=== PATIENT | female | born 1955 | race Caucasian/White ===

== ENCOUNTER → 2017-02-17 | Outpatient (CLI) | payer MEDICAID ==
[~2017-02-17] MED LIST: ACET-732 PO; CALC-586 PO; DULO30CA52 PO; FERR1TAB25 PO; LEVO25TA9 PO; MULT-806 PO; PRAM0.122 PO
[2017-02-17 11:05] LABS: ABSOLUTE RETICS # 0.0422 T/MM3 (0.0300-0.0900); HCT - HEMATOCRIT 37.7 % (36-46); MEAN CORPUSCULAR HGB 26.8 UUG (26-34); MEAN CORPUSCULAR HGB CONC(MCHC 29.2 GM/DL (31-37); MEAN PLATELET VOLUME 9.1 UM3 (9.4-12.4); WBC - WHITE BLOOD COUNT 5.9 T/MM3 (4.5-11.0)
[2017-02-17 11:14] LABS: ALBUMIN/GLOBULIN RATIO 1.1 RATIO (1.1-2.2); ALKALINE PHOSPHATASE 106 U/L (38-126); ALT (SGPT) 19 U/L (9-52); ANION GAP 14 MEQ/L (5-15); AST (SGOT) 23 U/L (14-36); BUN/CREATININE RATIO 14 RATIO (6-26); CHLORIDE 106 MEQ/L (98-107); CO2 - CARBON DIOXIDE 28 MEQ/L (22-30); CREATININE 1.7 MG/DL (0.7-1.2); GLOMERULAR FILTRATION RATE 31; GLUCOSE 121 MG/DL (65-110); LDH 458 U/L (313-618); MAGNESIUM 1.9 MG/DL (1.6-2.3); POTASSIUM 4.2 MEQ/L (3.6-5); SODIUM 148 MEQ/L (134-144); TOTAL PROTEIN 7.7 G/DL (6.3-8.2)
[2017-02-17 11:29] LABS: ANISOCYTOSIS 1+; BAND NEUTROPHILS # 0.1 T/MM3; EOSINOPHILS # (MANUAL) 0.1 T/MM3 (0-0.5); LYMPHOCYTES # (MANUAL) 0.9 T/MM3 (1-4.8); MONOCYTES # (MANUAL) 0.1 T/MM3 (0-0.8); NEUTROPHILS #(MANUAL)-ABSOLUTE 4.7 T/MM3 (1.8-7.7); POIKILOCYTOSIS 1+; TOTAL CELLS COUNTED 100 %
== END ==
LOC: LAB 10:46
PROVIDERS: ATTEND Internal Medicine Hematology & Oncology
DX: N18.3 Chronic kidney disease, stage 3 (moderate) (principal); D63.8 Anemia in other chronic diseases classified elsewhere
CPT/HCPCS: 36415; 80053; 83615; 83735; 85025; 85045

== ENCOUNTER → 2017-03-20 | Outpatient (CLI) | payer MEDICAID ==
--- NOTE | 2017-03-20 12:55 | DI ---
INDICATION: ITS.REASON: R05 COUGH PROCEDURE: CHEST 2-VIEWS UPRIGHT (PA \T\ LAT) Encounter: Initial COMPARISON: August 07, 2016 FINDINGS: New airspace consolidation in the left lower lobe with a small left effusion. Right lung is clear. No pneumothorax. Heart size and mediastinal contours are within normal limits. Pulmonary vascularity appears normal. Surgical clips in the upper abdomen. Impression: Left lower lobe pneumonia with small parapneumonic effusion. .
== END ==
LOC: IMA 10:48
PROVIDERS: ATTEND Nurse Practitioner Family
DX: J18.9 Pneumonia, unspecified organism (principal); J91.8 Pleural effusion in other conditions classified elsewhere; R05 Cough

== ENCOUNTER 2017-03-27 10:14 | Inpatient (IN) ==
--- NOTE | 2017-03-27 11:31 | XRay Report ---
INDICATION: PLURAL EFFUSION PROCEDURE: CHEST 2-VIEWS UPRIGHT (PA & LAT) Encounter: Initial COMPARISON: March 20, 2017 FINDINGS: Persistent left lower lobe airspace consolidation with a small effusion. Pleural effusion is slightly smaller. Right lung is clear. No pneumothorax. Heart size and mediastinal contours are stable. Pulmonary vascularity is normal. Impression: Slight improvement in left pleural effusion with residual left lower lobe airspace disease. Recommend continued radiographic follow-up. .
[2017-03-27] MEDS ORDERED: NS 1,000 ML IV SCH (11:45)
--- NOTE | 2017-03-27 12:12 | Ultrasound Report ---
Indication: Lower extremity swelling PROCEDURE: US venous doppler LE BI: Encounter: Initial Comparison: September 16, 2016 Technique: Color Doppler duplex and grayscale sonographic imaging of both lower extremities was performed. Findings: There is no evidence for acute deep venous thrombosis in either thigh. Specifically, serial graded compression was performed from the inguinal ligament to the popliteal bifurcation, bilaterally, demonstrating appropriate compressibility of the deep venous system. In addition, color and pulsed Doppler demonstrate appropriate spontaneous flow, variation with respiration, and augmentation with calf compression. At the ankle, normal flow is identified in the posterior tibial veins; these vessels are also normal in caliber. Impression: No evidence of acute DVT in either lower limb. .
[2017-03-27] MEDS: CLINDAMYCIN PREMIX 600 MG/50 ML BAG IV SCH ×2 (12:23→20:29)
[2017-03-27] MEDS ORDERED: ACETAMINOPHEN 325 MG TABLET PO PRN (12:56)
[2017-03-27] MEDS: IPRATROPIUM/ALBUTEROL 2.5mg-0.5mg/3ml NEB AEROSOL SCH ×2 (13:09→19:15)
--- NOTE | 2017-03-27 13:13 | Pharmacy Consult- Renal Dosing ---
Pharamcy Consul-Renal Dosing - Laboratory Information Renal dosing: Levofloxacin 03/27/17 11:56 BUN 27.0 H Creatinine 1.5 H Calculated CrCl = 47 ml/min. We will begin levofloxacin with 750mg ivpb q24h and clindamycin 600mg ivpb q8h. We anticipate improvement in creatinine clearance by 03/28. We will adjust levofloxacin if renal function does not improve by 03/28/17. Thanks
[2017-03-27] MEDS: METHYLPREDNISOLONE SOD SUCC 40mg/ml INJECTION IVP SCH ×2 (13:19→17:36)
[2017-03-27] MEDS: LEVOFLOXACIN PREMIX 750 MG/150 ML BAG IV SCH (13:51)
--- NOTE | 2017-03-27 14:07 | General Surgery Consult Note ---
Consult date: 03/27/17 Attending Physician: Jerardo Ashby DO Reason for consult: other (pleural effusion) [facility] Patient Stated Medical History Dental Problems Yes: dentures uppers and lowers Hypertension Yes: previously on HTN meds Asthma Yes Bronchitis Yes Pneumonia Yes Diabetes Mellitus Type 2 Yes: diet controlled Anemia Yes: Dr. Quiroz Chronic Anemia Osteoarthritis Yes Cellulitis Yes: right foot december 2016 Blood Transfusions Yes: when kidneys went into failure Restless leg syndrome Surgical History: Lap Sandhya 09/07/2314. right total hip 01/30/2014. left total hip 04/27/2015. EGD 12/31/2015 - Antritis, duodenal polyp. Colonoscopy 12/31/2015 - Larege Tubulovillous adenoma with low grade dysplasia. Colonoscopy 07/17/2016 - hyperplastic polyp Family History: mother - colon cancer, stroke, HTN brother - HTN Smoking status: Former smoker Medications Home Medications Medication Instructions Recorded Confirmed Type Duloxetine HCl 1 cap PO DAILY #30 12/28/15 History Levothyroxine Sodium 4 tab PO DAILY #30 12/28/15 03/27/17 History Pramipexole Di-HCl [Mirapex] 5 tab PO DAILY #0 07/03/16 03/27/17 History APAP/Codeine 300/30 (#3) [Tylenol 1 tab PO TID PRN 03/27/17 03/27/17 History with Codeine #3 (300/30)] Folic Acid [Folate] 1 mg PO TID 03/27/17 03/27/17 History Hydroxychloroquine Sulfate 400 mg PO DAILY 03/27/17 03/27/17 History METHOTREXATE 2.5mg TAB 15 mg PO WEEKLY 03/27/17 03/27/17 History [Methotrexate] Allergies Allergy/AdvReac Type Severity Reaction Status Date / Time Penicillins AdvReac Unknown FAMILY Verified 11/25/12 19:00 ALLERGY Review of Systems 10-point ROS: negative except for HPI and the following: - General General: Present: fever - Cardiovascular Cardiovascular: Present: chest pain (angina) (with deep breath) - Respiratory Respiratory: Present: difficulty breathing, cough - Gastrointestinal Gastrointestinal: Present: diarrhea - Musculoskeletal Musculoskeletal: Present: joint pain - Neurological Neurological: Present: other (headache) - Endocrine Endocrine: Present: diabetes (diet controlled) - Vital Signs Vital Signs: Last Vital Signs Temp 98.6 F 03/27/17 10:24 Pulse 98 03/27/17 12:08 Resp 16 03/27/17 13:00 BP 126/74 03/27/17 12:08 Pulse Ox 96 03/27/17 13:00 General Surgery Results - Results Labs: 03/27/17 11:56 03/27/17 11:56 Microbiology: Microbiology 03/27/17 11:56 Peripheral/Iv Start Blood Culture - Preliminary Culture Initiated - Results Pending 03/27/17 12:02 Peripheral/Iv Start Blood Culture - Preliminary Culture Initiated - Results Pending Hospital Course Summary Disclaimer: The visit summary below is not to be considered part of the above Progress Note. Sepsis Assessment - Focused Exam Vital Signs Temp Pulse Resp BP Pulse Ox 03/27/17 13:00 16 96 03/27/17 12:08 98 126/74 94 03/27/17 12:07 106 H 125/75 94 03/27/17 12:06 93 136/73 03/27/17 10:24 98.6 F 94 18 136/73 95
--- NOTE | 2017-03-27 14:24 | History & Physical Report ---
History of Present Illness Date: Chief complaint: community acquired pneumonia and pleural effusion and failed outpatient HPI: patient is a pleasant 61yo female known to our clinic. she has a known history of chronic kidney disease, hypertension and is a former smoker. she was in her usual state of health until about one week ago. at that time she started in with fevers, chills and cough as well as some SOA which was mostly on exertion. she [facility] and put on azithromycin and albuterol. a subsequent CXR showed a LLL pneumonia/small pleural effusion versus parapneumonic effusion. when seen in follow up early in the week it was noted she had improved quite a bit and, in speaking with radiology, the effusion wasn't significant enough to tap at that time. a CT of the chest without contrast was obtained that supported this and was otherwise unremarkable. she was put on levaquin renally dosed, tessalon perles and initially did very well with this. there was no intraperynchamal findings on the CT, just the pleural effusion. over the last 2 days the patient started feeling worse again and spiked a fever up to about 101 per her report at home. she started feeling very weak again. all the same symptoms had returned. she had a follow up scheduled for today and she was too weak to even walk up the stairs to get to her appointment and had to be seen in a room downstairs on the first floor of our building (this was a big change from earlier in the week). vitals were stable. given the clinical worsening it was opted to admit the patient to [facility] for further workup and evaluation. ROS is positive for the fevers, body aches and chills noted above. she denies headaches, photophobia, focal neurologic deficits, ear pain, sinus pain, sore throat. she is a little lightheaded when she stands up briskly but this goes away after a couple of seconds and she's find. no vertigo. no night sweats, unintentional weight loss. appetite has been poor. no other constitutional symptoms. no chest pain. doesn't seem to really be SOA at rest or exertion beyond where she was before. no orthopnea, PND. sputum is yellow. no hemoptysis. she feels like her legs were a bit swollen the other day and her calfs hurt but no such issues today. ROS negative for new DVT or PE risk factors. no numbness/weakness/tingling in arms or legs. no gait changes. no falls, trauma or injuries. no syncope or near-syncope. no recent travel, rashes, sick exposures, camping, [place]is exposures. no abdominal pain, nausea, vomiting, constipation, bloody/black stools. she had X3 episodes of watery brown diarrhea/loose stools yesterday but none so far today. no dysuria, hematuria, urinary frequency, flank pain, nocturia, bowel/bladder incontinance. no skin/soft tissue changes or problems. no mood changes and she denies homicidal/suicidal ideations. see above and below for further ROS. Review of Systems - Constitutional Constitutional: Present: as per HPI, chills, fatigue, fever(s), weakness. Absent: headache(s), increased appetite, night sweats, weight gain, weight loss - EENMT Eyes: Present: as per HPI. Absent: loss of vision EENMT Comments: no vision changes or URI symptoms. see above HPI. - Cardiovascular Cardiovascular: Present: dyspnea on exertion (but no more than previous.), edema (but none now. see HPI above. ). Absent: chest pain, palpitations, syncope, orthopnea, cyanosis Vascular: Present: see HPI. Absent: unilateral swelling (none right now. see above HPI.) - Respiratory Respiratory: Present: as per HPI, cough, dyspnea (but no more than previous. see above HPI.), wheezing, chest congestion. Absent: hemoptysis, pain on inspiration - Gastrointestinal Gastrointestinal: Present: as per HPI, diarrhea (see above HPI.). Absent: abdominal pain, coffee ground emesis, constipation, dyspepsia, dysphagia, hematemesis, hematochezia, melena, nausea, odynophagia, vomiting - Genitourinary Genitourinary: Present: as per HPI. 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 - Musculoskeletal Musculoskeletal: Present: as per HPI. Absent: abnormal gait, back pain, limited range of motion, muscle weakness, neck pain - Integumentary/Breasts Integumentary: Present: as per HPI Integumentary Comments: no skin or soft tissues changes. no new rashes. - Neurological Neurological: Present: as per HPI Neurological Comments: ROS negative for vertigo, stroke, tinnitus, hearing changes, meningeal symptoms , photophobia, seizure symptoms, focal neurologic deficits, cranial nerve symptoms. - Psychiatric Psychiatric: Present: as per HPI. Absent: auditory hallucinations, depression, hallucinations, homicidal ideation, suicidal ideation, visual hallucinations - Endocrine Endocrine: Present: as per HPI - Hematologic/Lymphatic Hematologic/Lymphatic: Present: as per HPI Hematologic/Lymphatic Comments: no abnormal bleeding. - Allergic/Immunologic Allergic/Immunologic: Present: as per HPI Allergic/Immunologic: see the above for allergies and ADR's. [facility] Patient Stated Medical History Dental Problems Yes: dentures uppers and lowers Hypertension Yes: previously on HTN meds Asthma Yes Bronchitis Yes Pneumonia Yes Diabetes Mellitus Type 2 Yes: diet controlled Anemia Yes: Dr. Quiroz Chronic Anemia Osteoarthritis Yes Cellulitis Yes: right foot december 2016 Blood Transfusions Yes: when kidneys went into failure Medical History Updates: -iron deficiency anemia. -elevated fasting blood sugar. -osteoarthritis. -chronic kidney disease with baseline creatinine of 1.6. -HTN. -Sjogren's syndrome, followed by rheumatology. -GERD remotely Surgical History: Lap Sandhya 09/07/2314. right total hip 01/30/2014. left total hip 04/27/2015. EGD 12/31/2015 - Antritis, duodenal polyp. Colonoscopy 12/31/2015 - Larege Tubulovillous adenoma with low grade. dysplasia. Colonoscopy 2015 - hyperplastic polyp Family History: -father has . had heart disease -mother alive, has colon cancer, hypertension, history of stroke. Smoking status: Former smoker Social history: -former smoker -no illicit drug use -no significant alcohol use -lives at home Medications Home Medications Medication Instructions Recorded Confirmed Type Duloxetine HCl 1 cap PO DAILY #30 12/28/15 History Levothyroxine Sodium 4 tab PO DAILY #30 12/28/15 03/27/17 History Pramipexole Di-HCl [Mirapex] 5 tab PO DAILY #0 07/03/16 03/27/17 History APAP/Codeine 300/30 (#3) [Tylenol 1 tab PO TID PRN 03/27/17 03/27/17 History with Codeine #3 (300/30)] Folic Acid [Folate] 1 mg PO TID 03/27/17 03/27/17 History Hydroxychloroquine Sulfate 400 mg PO DAILY 03/27/17 03/27/17 History METHOTREXATE 2.5mg TAB 15 mg PO WEEKLY 03/27/17 03/27/17 History [Methotrexate] Allergies Allergy/AdvReac Type Severity Reaction Status Date / Time Penicillins AdvReac Unknown FAMILY Verified 11/25/12 19:00 ALLERGY Exam Vital Signs: Temp Pulse Resp BP Pulse Ox 98.6 F 98 16 126/74 96 03/27/17 10:24 03/27/17 12:08 03/27/17 13:00 03/27/17 12:08 03/27/17 13:00 Height: 1.63 m Weight: 103.3 kg Body Mass Index: 39.0 - Constitutional Present: no acute distress, obese, cooperative. Absent: diaphoretic, disheveled , agitated, somnolent, obtunded - Routine HEENT Exam Head: Present: normocephalic, atraumatic Comments: mucous membranes moderately dry. - Routine Neck Exam Present: supple, full ROM, trachea midline. Absent: JVD, lymphadenopathy, thyromegaly, tenderness, tracheal deviation, trauma Comments: no photophobia. no clinical evidence of meningitis at this time. - Routine Chest/Breast/Axilla Exam Chest wall: Absent: tenderness - Routine Respiratory Exam Present: CTA bilaterally. Absent: accessory muscle use, decreased breath sounds , rales, respiratory distress, rhonchi, stridor, wheezes, crackles, distant breath sounds, diminished air movement Comments: lung sounds heard in all lung ghotra b/l at this time. moving air well. no respiratory distress, retractions, accessory muscle use. - Routine Cardiovascular Exam Present: RRR, no murmur. Absent: murmur, gallop, rubs, click, bradycardia, tachycardia, irregular rhythm, irregularly irregular, JVD Comments: clinically well perfused in all 4 extremities at this time. no stigmata of heart failure. legs symmetrical and this time and no LE edema bilaterally. no clinical evidence of acute, chronic or worsening neurovascular compromise b/l in LE's at this time. compartments soft b/l in LE's at this time. pulses normal in LE's b/l at this time. see below for neurologic exam. - Routine Abdominal Exam Present: soft (X4.), normoactive bowel sounds (X4.), non distended, non tender ( X4.\). Absent: tenderness (X4.), distended, rebound, guarding, firm, rigid, organomegaly, mass - Routine Exam Comments: no tenderness over bladder area. - Routine Extremities Exam Comments: see above. extremities clinically well perfused X4 extremities. - Routine Back/Spine/Pelvis Exam Comments: CN2-12 in tact to testing. PERRLA. EOMI. no nystagmus. gait normal. concensual reflex in tact. DTR's/sensation/motor/muscle strength normal and symmetrical b/l in extremities X4 at this time. no focal deficits at this time. no photophobia. no clinical evidence of meningitis at this time. - Routine Skin Exam Present: intact. Absent: rash Comments: or skin changes to uncovered areas at this time. - Routine Psychiatric Exam Present: normal affect, normal thought process, cooperative, good insight, good judgment. Absent: suicidal ideation, homicidal ideation, auditory hallucinations, visual hallucinations, tactile hallucinations, depressed, anxious, agitated, paranoid, manic Results - Labs CBC & Chem 7: 03/27/17 11:56 03/27/17 11:56 Labs: Short CBC 03/27/17 Range/Units 11:56 WBC 8.6 (4.5-11.0) T/MM3 Hgb 10.5 L (12-16) GM/DL Hct 35.2 L (36-46) % Plt Count 304 (130-400) T/MM3 [facility] 03/27/17 11:56 Sodium 146 H Potassium 4.3 Chloride 105 Carbon Dioxide 25 BUN 27.0 H Creatinine 1.5 H Glucose 107 Calcium 9.4 Cardiac Enzymes 03/27/17 Range/Units 11:56 Troponin I 0.012 (0-0.12) ng/ml Liver Function 03/27/17 Range/Units 11:56 Total Bilirubin 0.50 (0.20-1.30) MG/DL AST 24 (14-36) U/L ALT 34 (9-52) U/L Alkaline Phosphatase 93 (38-126) U/L Albumin 4.2 (3.5-5.0) G/DL Assessment and Plan Assessment and Plan: community acquired pneumonia with pleural effusion. failed outpatient therapy. concern for empyema, parapneumonic effusion versus other cause. weakness secondary to the above. lower extremity venous edema and calf pain a few days ago, resolved. diarrhea of uncertain etiology dehydration hypertension chronic kidney disease depression Sjogren's syndrome, well controlled chronic iron deficiency anemia elevated fasting blood sugar hypothyroid -admit to inpatient, routine vitals with call parameters, I's and O's, telemetry, daily weights, diabetic diet, up with assist, oxygen as needed, orthostatic vitals. other possible causes of pleural confusion are pleuritis, methotrexate, autoimmune issues. 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 -IV normal saline 1 liter wide open then 125ml/hr for now. start IV solumedrol, IV levaquin and clindamycin with pharmacy to dose, tesamrit cox scheduled, duonebs scheduled. continue home multivitamin, vitmain C, iron , cymbalta, mirapex, methotrexate, folic acid, plaquanil, calcium/vitamin D, tylenol prn, synthroid. -check cbc, cmp, troponin, procalcitonin, lactic acid, tsh, blood cultures X2, UA, crp, sputum culture and gram stain, urine strep pneumonia, urine legionella, mycoplasma serologies, CK, coag studies, stool PCR and c-diff, TSH now. check GLUBS. -repeat CXR, echocardiogram, LE dopplar venous ultrasound and EKG ordered. -Dr. Vilchis surgery consulted to see if he can do thoracentesis. if not then will employ interventional radiology to do ultrasound guided thoracentesis and will enact labs in blood and pleural fluid as per thoracentesis protocol here. see this protocol for details. this includes cytology. -cbc and cmp in the AM. all other chronic medical conditions stable and no other changes to plan of care at this time. ppx -SCD's for DVT ppx if dopplar of legs negative above. no pharmacalogic DVT ppx right now as patient will likely end up getting thoracentesis. -continue PO diet above for GI ppx. -FULL CODE -dispo heavily dependent on the above. Sepsis Assessment - Evaluation Possible source: pulmonary (testing pending above.) - Focused Exam Vital Signs Temp Pulse Resp BP Pulse Ox 03/27/17 13:00 16 96 03/27/17 12:08 98 126/74 94 03/27/17 12:07 106 H 125/75 94 03/27/17 12:06 93 136/73 03/27/17 10:24 98.6 F 94 18 136/73 95
[2017-03-27] MEDS: BENZONATATE 200 MG CAPSULE PO SCH ×2 (15:38→21:28)
--- NOTE | 2017-03-27 16:08 | Consultation ---
DATE OF CONSULTATION 03/27/2017 FINDINGS Mrs. Azul is a 61-year-old female whom I was asked to see today for possible thoracentesis. Upon questioning Mrs. Azul, she informs me that she has had a respiratory illness now for about the last two weeks. Patient states that she had a "horrible cough" for several days. After about four days of feeling somewhat short of breath and having a "bad cough", she presented to her primary care physician who had placed her on antibiotics as well as oral steroids. Patient states that she did feel better for a few days but recently has begun to develop severe cough and increasing shortness of breath. Patient states that she does have some pleuritic chest pain. This is more so noted on the left but also overlying the sternal region with coughing. She has been having some intermittent fevers. As a result of her ongoing symptomatology, patient was admitted to the hospital for further evaluation. PAST MEDICAL HISTORY Performed by my nurse practitioner, Chai East. PAST SURGICAL HISTORY Performed by my nurse practitioner, Chai East. MEDICATIONS Performed by my nurse practitionerChai. ALLERGIES Performed by my nurse practitionerChai. SOCIAL HISTORY Performed by my nurse practitionerChai. FAMILY HISTORY Performed by my nurse practitionerChai. REVIEW OF SYSTEMS Performed by my nurse practitionerChai. PHYSICAL EXAMINATION GENERAL: Mrs. Azul is a 61-year-old female who this afternoon did not appear to be in acute distress. VITALS: Temperature 98.6. Pulse 98. Respirations 16. Blood pressure 126/74. SaO2 96% on room air. HEENT: Normocephalic. Pupils are equally round and react to light and accommodation. NECK: Supple without lymphadenopathy. CHEST: Auscultation of the chest did reveal some diminished breath sounds within the left base in comparison to the right. No rales or rhonchi were noted HEART: Regular rate and rhythm. Normal S1, S2, without gallops, murmurs or clicks. ABDOMEN: Palpation of the abdomen reveals it to be soft and nontender. I do not appreciate any evidence for hepatosplenomegaly nor abnormal masses. EXTREMITIES: Without clubbing, cyanosis, or edema. NEURO: Cranial nerves II-XII grossly intact. Patient without focal, motor, or sensory deficits. LABORATORY/RADIOGRAPHIC REVIEW I did go back and review her CT scan that was performed a few days ago through [facility]. There was no obvious mass worrisome finding within the lung parenchyma. She was found to have a small left pleural effusion. I reviewed her chest x-ray from today. She was found to have some blunting of the left costophrenic angle. Again no intraparenchymal lesions were noted. I reviewed lab work from today. White count was normal at 8.6. Hemoglobin slightly low at 10.5. CMP was obtained and found to have some slight abnormalities but overall normal. BUN and creatinine were elevated at 27.0 and 1.5, respectively. Sodium is slightly elevated at 146. ASSESSMENT 61-year-old female with history for pleuritic chest pain, cough, left pleural effusion noted on radiograph evaluation. PLAN I do feel it would be beneficial to proceed with thoracentesis from a diagnostic standpoint more than that of a therapeutic standpoint. Given the small amount of fluid that is present, I feel that it would be best to have radiology perform this thoracentesis under ultrasound guidance. I do not think the patient has any type of surgical process going on at this point in time such as a underlying empyema. Will go ahead and sign off at this point in time from a surgical standpoint. If any further assistance is needed, please do not hesitate to recontact. MAGGIE
[2017-03-27] MEDS: PRAMIPEXOLE 0.25 MG TABLET PO SCH ×2 (16:14→21:28)
--- NOTE | 2017-03-27 16:20 | Ultrasound Report ---
Indication:pleural effusion Ordering physician:Jerardo Ashby MD Procedure:US thoracentesis THORACENTESIS: After discussing the details of the procedure, including the risks, the patient wished to proceed. Informed consent was obtained. A preprocedural timeout was performed to confirm the correct patient and procedure. Using aseptic technique, local lidocaine anesthetic, and ultrasound guidance throughout, a left-sided thoracentesis was performed using a posterolateral approach. 5 cc of straw-colored fluid was removed from the left hemithorax and sent to lab for the requested studies. The patient tolerated this procedure well. Following this, the patient was taken back to her room on the medical floor. Impression: Successful diagnostic thoracentesis performed with 5 cc of fluid removed and sent to lab. Livan Dennis RPA/KEYANA performed this under my personal supervision. .
[2017-03-27] MEDS: NS 1,000 ML IV SCH (16:33)
[2017-03-27] MEDS: FERROUS SULFATE 324 MG TABLET PO SCH (17:36)
[2017-03-27] MEDS: ASCORBIC ACID 500 MG TABLET PO SCH (17:36)
[2017-03-27] MEDS: CALCIUM 600 + VIT D 400 TABLET PO SCH (21:29)
[2017-03-28] MEDS: METHYLPREDNISOLONE SOD SUCC 40mg/ml INJECTION IVP SCH ×3 (01:09→17:19)
[2017-03-28] MEDS: IPRATROPIUM/ALBUTEROL 2.5mg-0.5mg/3ml NEB AEROSOL SCH ×4 (02:43→20:24)
[2017-03-28] MEDS: CLINDAMYCIN PREMIX 600 MG/50 ML BAG IV SCH ×3 (05:02→22:03)
[2017-03-28] MEDS: NS 1,000 ML IV SCH (05:03)
[2017-03-28] MEDS: LEVOTHYROXINE 100 MCG TABLET PO SCH (05:42)
[2017-03-28] MEDS ORDERED: HYDROXYCHLOROQUINE 200 MG TABLET PO SCH (08:00)
[2017-03-28] MEDS: ASCORBIC ACID 500 MG TABLET PO SCH ×2 (08:08→17:18)
[2017-03-28] MEDS: FERROUS SULFATE 324 MG TABLET PO SCH ×2 (08:08→17:19)
[2017-03-28] MEDS: MULTI-VITAMIN PLAIN TABLET PO SCH (08:08)
[2017-03-28] MEDS: BENZONATATE 200 MG CAPSULE PO SCH ×3 (08:08→21:10)
[2017-03-28] MEDS: CALCIUM 600 + VIT D 400 TABLET PO SCH ×2 (08:08→21:10)
[2017-03-28] MEDS: DULOXETINE 30 MG CAPSULE PO SCH (08:09)
[2017-03-28] MEDS: FOLIC ACID 1 MG TABLET PO SCH (08:09)
[2017-03-28] MEDS: PRAMIPEXOLE 0.25 MG TABLET PO SCH ×3 (08:12→21:09)
--- NOTE | 2017-03-28 10:24 | Progress Note ---
Subjective: patient feels much better today. no headaches, stroke symptoms, syncope, dizziness, falls, trauma, sinus pain, sore throat, ear pain, rhinorrhea. no focal neurologic deficits. lightheadedness from yesterday resolved completely. no orthostatic symptoms. no cough, sputum production, hemoptysis. no orthopnea, PND, edema. no leg pain or swelling. no abdominal pain, nausea, vomiting, diarrhea, constipation, bloody/black stools. no BM since admission but she's been here less than 24 hours. appetite good. energy much improved from yesterday. no dysuria, hematuria, urinary frequency, flank pain, nocturia , other urinary symptoms. no events called on telemetry. no new issues otherwise at this time. Objective Vital signs: Temp Pulse Resp BP Pulse Ox 98.0 F 69 16 153/71 H 97 03/28/17 07:22 03/28/17 07:22 03/28/17 09:42 03/28/17 07:22 03/28/17 09:42 Weight: 104.6 kg - Constitutional Present: no acute distress, obese, cooperative. Absent: diaphoretic, disheveled , agitated, somnolent, obtunded - Routine HEENT Exam Head: Present: normocephalic, atraumatic Comments: mucous membranes moist. clinically well perfused at this time. no evidence of fluid overload at this time. - Routine Respiratory Exam Present: CTA bilaterally. Absent: accessory muscle use, decreased breath sounds , rales, respiratory distress, rhonchi, stridor, wheezes, crackles, distant breath sounds, diminished air movement Comments: lung sounds heard in all lung ghotra b/l at this time. - Routine Cardiovascular Exam Present: RRR, no murmur. Absent: murmur, gallop, rubs, click, bradycardia, tachycardia, irregular rhythm, irregularly irregular, JVD - Routine Abdominal Exam Present: soft (X4.), normoactive bowel sounds (X4.), non distended, non tender ( X4.). Absent: tenderness (X4.), distended, rebound, guarding, firm, rigid, organomegaly - Routine Exam Comments: no tenderness over bladder area. - Routine Extremities Exam Comments: no LE edema bilaterally at this time. - Routine Musculoskeletal Exam Musculoskeletal: normal strength, no joint swelling, moving extremities well - Routine Skin Exam Comments: no rashes or skin changes to uncovered areas. - Routine Neurological Exam no focal deficits. no changes from previous. no photophobia. no clinical evidence of meningitis at this time. - Routine Lymphatic Exam Lymphatic: Absent: lymphedema - Routine Psychiatric Exam Present: normal affect, cooperative. Absent: agitated Comments: no changes from previous baseline. Results - Labs CBC & Chem 7: 03/28/17 04:11 03/28/17 04:11 Labs: Short CBC 03/27/17 03/28/17 Range/Units 11:56 04:11 WBC 8.6 5.2 (4.5-11.0) T/MM3 Hgb 10.5 L 9.6 L (12-16) GM/DL Hct 35.2 L 33.3 L (36-46) % Plt Count 304 267 (130-400) T/MM3 BMP 03/27/17 03/28/17 11:56 04:11 Sodium 146 H 145 H Potassium 4.3 4.3 Chloride 105 108 H Carbon Dioxide 25 22 BUN 27.0 H 27.0 H Creatinine 1.5 H 1.4 H D Glucose 107 177 H Calcium 9.4 9.7 Cardiac Enzymes 03/27/17 03/27/17 Range/Units 11:56 11:56 CK-MB (CK-2) 0.4 (0.0-3.4) ng/mL Troponin I 0.012 (0-0.12) ng/ml Liver Function 03/27/17 03/28/17 Range/Units 11:56 04:11 Total Bilirubin 0.50 0.40 (0.20-1.30) MG/DL AST 24 20 (14-36) U/L ALT 34 28 (9-52) U/L Alkaline Phosphatase 93 85 (38-126) U/L Albumin 4.2 3.9 (3.5-5.0) G/DL Urine 03/27/17 Range/Units 14:31 Urine Color Yellow (YELLOW) Urine Clarity Sl cloudy Urine pH 6.0 (5.0-8.0) Ur Specific [place] >=1.030 H (1.015-1.025) Urine Protein 1+ A (NEGATIVE) Urine Glucose (UA) Negative (NEGATIVE) Assessment and Plan Assessment and Plan: community acquired pneumonia with pleural effusion. failed outpatient therapy. concern for empyema, parapneumonic effusion versus autoimmune versus medication cause (methotrexate, plaquanil, etc.) weakness secondary to the above, improved lower extremity venous edema and calf pain a few days ago, resolved. diarrhea of uncertain etiology, resolved dehydration, resolved hypertension chronic kidney disease depression Sjogren's syndrome without evidence of any active disease chronic iron deficiency and acute dilutional anemia elevated fasting blood sugar hypothyroid restless leg syndrome -continue inpatient, routine vitals with call parameters, I's and O's, telemetry, daily weights, diabetic diet, up with assist, oxygen as needed. discussed with Dr. Cheng of rheumatology. she's ok with holding methotrexate and plaquanil and she's ok with the steroids. will ambulate TID. -d/c IV fluids today. continue IV solumedrol. continue IV clindamycin and levaquin for now but may discontinue as this looks less and less like an infection. continue current tessalon perles, duonebs, multivitamin, vitamin C, iron, cymbalta, mirapex, folic acid, calcium/vitamin D, tylenol prn, synthroid. -cbc's with decrease in hgb to 9's from dilution but otherwise unremarkable. cmp's with creatinine down to 1.4 (1.5 yesterday) and otherwise unremarkable. troponine, procalcitonin, lactic acid, tsh, ua, ck unremarkable. GLUBS in 100's for now. stool pcr and c-diff couldn't be done as patient no longer having diarrhea per report. INR 1.28 and PTT normal. pleural fluid gram stain negative. CXR a bit improved from previous. got 10cc's from pleural tap which patient tolerated well. LE dopplar u/s unremarkable. EKG unremarkable. pleural cytology pending see previous notes for other testing and results from this stay. -pleural fluid culture, blood cx X2, urine legionella, mycoplasma serologies , sputum culture and gram stain, urine strep pneumonia pending. pleural fluid cultures leaning toward transudate and away from infection right now but some still pending. echocardiogram pending. EKG normal. -cbc, cmp in the AM. continue to follow GLUBS. -Dr. Vilchis, surgery consulted and can't do tap. IR performed tap ultrasound guided. see their report for details. this includes cytology. all other chronic medical conditions stable and no other changes to plan of care at this time. ppx -SCD's for DVT ppx if dopplar of legs negative above. no pharmacalogic DVT ppx considered until later today given recent tap. -continue PO diet above for GI ppx. -FULL CODE -dispo will likely discontinue abx as pleural studies come back. likely discharge home tomorrow. Sepsis Assessment - Evaluation Sepsis screening result: No Definite Risk - Focused Exam Vital Signs Temp Pulse Resp BP Pulse Ox 03/28/17 09:42 16 97 03/28/17 07:22 98.0 F 69 16 153/71 H 03/28/17 02:40 18 96 03/28/17 00:23 98.4 F 76 164/82 H 93 Respiratory exam: Present: CTA bilaterally. Absent: accessory muscle use, decreased breath sounds, rales, respiratory distress, rhonchi, stridor, wheezes , crackles, distant breath sounds, diminished air movement Cardiovascular exam: Present: RRR, no murmur. Absent: murmur, gallop, rubs, click, bradycardia, tachycardia, irregular rhythm, irregularly irregular, JVD Hospital Course Summary Disclaimer: The visit summary below is not to be considered part of the above Progress Note.
[2017-03-28] MEDS: LEVOFLOXACIN PREMIX 750 MG/150 ML BAG IV SCH (11:47)
[2017-03-29] MEDS: METHYLPREDNISOLONE SOD SUCC 40mg/ml INJECTION IVP SCH ×3 (00:35→16:51)
[2017-03-29] MEDS: IPRATROPIUM/ALBUTEROL 2.5mg-0.5mg/3ml NEB AEROSOL SCH ×3 (03:08→15:38)
[2017-03-29] MEDS: CLINDAMYCIN PREMIX 600 MG/50 ML BAG IV SCH (05:13)
[2017-03-29] MEDS: LEVOTHYROXINE 100 MCG TABLET PO SCH (06:02)
[2017-03-29] MEDS: BENZONATATE 200 MG CAPSULE PO SCH ×2 (08:36→14:25)
[2017-03-29] MEDS: ASCORBIC ACID 500 MG TABLET PO SCH ×2 (08:36→17:40)
[2017-03-29] MEDS: DULOXETINE 30 MG CAPSULE PO SCH (08:36)
[2017-03-29] MEDS: FOLIC ACID 1 MG TABLET PO SCH (08:37)
[2017-03-29] MEDS: MULTI-VITAMIN PLAIN TABLET PO SCH (08:37)
[2017-03-29] MEDS: PRAMIPEXOLE 0.25 MG TABLET PO SCH ×3 (08:37→14:25)
[2017-03-29] MEDS: FERROUS SULFATE 324 MG TABLET PO SCH ×2 (08:37→17:40)
[2017-03-29] MEDS: CALCIUM 600 + VIT D 400 TABLET PO SCH (08:37)
[2017-03-29] MEDS: LEVOFLOXACIN PREMIX 750 MG/150 ML BAG IV SCH (10:49)
[2017-03-29] MEDS ORDERED: ENOXAPARIN 40 MG/0.4 ML INJECTION SQ SCH (16:45)
--- NOTE | 2017-03-29 17:03 | Progress Note ---
Subjective: patient doing well. states she feels back to baseline. no issues. denies headaches, stroke symptoms, syncope, sjogren's sympotms, fevers, chills, body aches, night sweats, URI symptoms, fatigue, body aches. appetite is good. no near syncope. no chest pain, SOA, palpitations, orthopnea, PND, cough, sputum production, hemoptysis. no chest pain or SOA on rest or exertion. no ab pain , GERD symptoms, hematemesis, coffee ground emesis, melena, BRBPR, diarrhea. she denies constipation but notes she hasn't had a BM while here yet but she's only been here a short period of time. no dysuria, hematuria, urinary frequency , flank pain, nocturia, other urinary symptoms. mood is good. no depression symptoms. no events called on telemetry overnight. no new issues otherwise at this time. Objective Vital signs: Temp Pulse Resp BP Pulse Ox 97.6 F 95 16 143/90 H 97 03/29/17 16:00 03/29/17 16:00 03/29/17 15:39 03/29/17 16:00 03/29/17 16:00 Weight: 103.5 kg - Constitutional Present: no acute distress, obese, cooperative. Absent: diaphoretic, disheveled , agitated, somnolent, obtunded - Routine HEENT Exam Comments: mucous membranes moist at this time. no clinical evidence of fluid overload at this time. - Routine Respiratory Exam Present: CTA bilaterally. Absent: accessory muscle use, decreased breath sounds , rales, respiratory distress, rhonchi, stridor, wheezes, crackles, distant breath sounds, diminished air movement Comments: lung sounds heard in all lung ghotra b/l at this time. - Routine Cardiovascular Exam Comments: stable from previous. no changes. - Routine Abdominal Exam Present: soft (X4.), normoactive bowel sounds (X4.), non distended, non tender ( X4.). Absent: tenderness (X4.), distended, rebound, guarding, firm, rigid, organomegaly - Routine Exam Comments: no tenderness over bladder area at this time. - Routine Extremities Exam Comments: no LE edema bilaterally. legs symmetrical and compartments soft b/l at this time. extremities clinically well perfused X4 extremities at this time. - Routine Musculoskeletal Exam Musculoskeletal: normal strength, no joint swelling, moving extremities well - Routine Skin Exam Comments: no new rashes or changes to uncovered areas. - Routine Lymphatic Exam Lymphatic: Absent: lymphedema - Routine Psychiatric Exam Present: normal affect, normal thought process, cooperative, good insight, good judgment. Absent: suicidal ideation, homicidal ideation, auditory hallucinations, visual hallucinations, tactile hallucinations, depressed, anxious, agitated, paranoid, manic Results - Labs CBC & Chem 7: 03/29/17 04:28 03/29/17 04:28 Labs: Short CBC 03/29/17 Range/Units 04:28 WBC 11.6 H D (4.5-11.0) T/MM3 Hgb 9.7 L (12-16) GM/DL Hct 32.7 L (36-46) % Plt Count 284 (130-400) T/MM3 BMP 03/29/17 04:28 Sodium 144 Potassium 4.5 Chloride 106 Carbon Dioxide 22 BUN 31.0 H Creatinine 1.4 H Glucose 189 H Calcium 10.3 H Liver Function 03/29/17 Range/Units 04:28 Total Bilirubin 0.40 (0.20-1.30) MG/DL AST 29 (14-36) U/L ALT 29 (9-52) U/L Alkaline Phosphatase 86 (38-126) U/L Albumin 4.1 (3.5-5.0) G/DL Assessment and Plan Assessment and Plan: pleural effusion from uncertain etiology with several tests pending. clinically patient back to baseline. likely from recent bronchopneumonia with subsequent pleuritis. other considerations are secondary to methotrexate/plaquanil or from her longstanding autoimmune disease. weakness and dehydration secondary to the above, resolved lower extremity venous edema and calf pain a few days ago, resolved. diarrhea of uncertain etiology, resolved dehydration, resolved hypertension chronic kidney disease depression Sjogren's syndrome without evidence of any active disease chronic iron deficiency and acute dilutional anemia elevated fasting blood sugar hypothyroid restless leg syndrome steroid induced leukocytosis. -discharge to home today. no indication for abx given the negative culture results. -d/c levaquin and clindamycin at this time. convert IV solumedrol to PO steroid taper and rheumatology is ok with this per our conversation yesterday. convert home duonebs back to prn ventolin. continue current tessalon pearles at home and continue current multivitamin, iron, cymbalta, vitamin C, mirapex, folic acid, calcium/vitamin D, tylenol prn, synthroid. -continue to hold methotrexate and plaquanil and see what rheumatology wants to do as outpatient. -CBC's with stable anemia in mid to high 9's and hct noted accordingly. wbc count 11.6 and predominance of neuts but no bands. likely secondary to steroid induced leukocytosis given patient's clinical improvement. otherwise cbc's unremarkable. cmp's with stable creatinine around 1.4 and otherwise unremarkable. GLUBS and blood sugars in mid-100's generally and stable and should come down as patient weens off steroids as outpatient. pleural effusion an exudate by light's criteria. pleural fluid culture negative thus far as was gram stain. cell count and differential generally unremarkable and not much in the way of RBC's present either. respiratory PCR unremarkable. see previous notes for other details and results from this stay as well as testing. -will have patient see her doorkeeper as outpatient. -final pleural fluid cultures, cytology, urine legionella, mycoplasma serologies, sputum culture and gram stain, urine strep pneumonia, echocardiogram all generally pending. all other chronic medical conditions stable and no other changes to plan of care at this time. ppx -continue SCD's for DVT. SQ lovenox started (patient's EGFR in 30's so can have full dose) now that hgb has been stable and he's more than 24hrs out from thoracentesis. -continue PO diet above for GI ppx. -FULL CODE -dispo discharge to home today. Sepsis Assessment - Evaluation Sepsis screening result: No Definite Risk - Focused Exam Vital Signs Temp Pulse Resp BP Pulse Ox 03/29/17 16:00 97.6 F 95 143/90 H 97 03/29/17 15:39 16 97 03/29/17 09:50 16 99 03/29/17 07:11 97.6 F 76 16 156/86 H 96 Respiratory exam: Present: CTA bilaterally. Absent: accessory muscle use, decreased breath sounds, rales, respiratory distress, rhonchi, stridor, wheezes , crackles, distant breath sounds, diminished air movement Cardiovascular exam: Present: RRR, no murmur. Absent: murmur, gallop, rubs, click, bradycardia, tachycardia, irregular rhythm, irregularly irregular, JVD Hospital Course Summary Disclaimer: The visit summary below is not to be considered part of the above Progress Note.
--- NOTE | 2017-03-29 18:17 | Discharge Summary ---
Discharge Plan - Med Rec/Dispo Referrals/Follow Up: Jerardo Ashby, [Family Provider] - 1 Week (do cbc and cmp the day [facility] and send to Dr. Ashby. ICD 10 code for this is D64.9. ) Dee Dee Cheng MD [Physician] - 1 Week (hold methotrexate and plaquanil until seen by Dr. Cheng. ) [place] Instructions: Pleural Effusion (DC) Additional Instructions: -if any issues worsen and/or new ones occur be seen immediately. -TO NURSING. PLEASE DISCONTINUE ALL LINES, IV'S AND TELEMETRY THE PATIENT DIDN' T COME IN ON BEFORE DISCHARGING PATIENT. Prescriptions: New Acetaminophen [Tylenol] 650 mg PO Q6H PRN #28 PRN Reason: Pain /Fever Albuterol Inhaler [Ventolin Hfa] 2 puff ORAL INH Q6HR PRN #1 inhaler PRN Reason: Cough /Congestion Ascorbic Acid [Vitamin C] 500 mg PO BID #60 Docusate Sodium [Colace] 1 cap PO BID PRN #60 cap PRN Reason: Constipation Ferrous Sulfate [Feosol] 324 mg PO BIDWM #60 Multi-Vitamin Plain [Theragran] 1 tab PO DAILY #30 Pramipexole [MIRAPEX eqv] 0.125 mg PO 0900,1500 #60 PredniSONE [Deltasone] 10 mg PO WB #30 tab Benzonatate [Tessalon Perles] 200 mg PO Q8H PRN #21 cap PRN Reason: Cough /Congestion Pramipexole [MIRAPEX eqv] 0.25 mg PO HS #30 Continue Folic Acid [Folate] 1 mg PO TID Levothyroxine Sodium 4 tab PO DAILY #30 Duloxetine HCl 1 cap PO DAILY #30 Discontinued Pramipexole Di-HCl [Mirapex] 5 tab PO DAILY #0 Hydroxychloroquine Sulfate 400 mg PO DAILY METHOTREXATE 2.5mg TAB [Methotrexate] 15 mg PO WEEKLY APAP/Codeine 300/30 (#3) [Tylenol with Codeine #3 (300/30)] 1 tab PO TID PRN PRN Reason: Pain - Disposition 01 Discharged Home, Self-Care
--- NOTE | 2017-03-29 19:53 | Discharge Summary ---
DATE OF ADMISSION 03/27/2017 DATE OF DISCHARGE 03/29/2017 MODE OF ADMISSION Inpatient. ATTEND[facility] PHYSICIAN Dr. Ashby, [facility]. ADMITTING PHYSICIAN Dr. Ashby, [facility] CONSULTING PHYSICIAN Dr. Vilchis - General Surgery. DISCHARGE DIAGNOSES 1. Pleural effusion of uncertain etiology. Most likely cause at this time would be a recent bronchopneumonia which has been treated to completion with subsequent pleuritis which is resolving. Other considerations are secondary to the patient's methotrexate and/or Plaquenil. Also, a consideration is from the patient's long-standing autoimmune disease and Sjgren's. 2. Weakness and dehydration secondary to the above which has resolved. 3. Lower extremity venous edema and calf pain a few days which has resolved. 4. Diarrhea on admission of uncertain etiology which has resolved. 5. Dehydration which has resolved. 6. Chronic kidney disease which is stable. 7. Chronic iron-deficiency and acute dilutional anemia. 8. Elevated fasting blood sugars. 9. Hypothyroidism. 10. Restless leg syndrome. 11. Steroid-induced leukocytosis. DISCHARGE MEDICATIONS 1. Tylenol 650 mg p.o. q.6h. p.r.n. pain/fever for seven days with no refills. Patient instructed not to take any other Tylenol or pain medicines while on this. 2. Ventolin HFA 90 mcg, one to two puffs orally inhaled every six hours as needed for cough/congestion. 3. Vitamin C 500 mg p.o. b.i.d. with meals. The patient will take while on the iron. 4. Tessalon Perles 200 mg p.o. q.8h. p.r.n. cough/congestion x 7 days with no refills. 5. Colace 100 mg p.o. b.i.d. p.r.n. constipation. 6. Cymbalta 30 mg p.o. daily. 7. Ferrous sulfate 324 mg p.o. b.i.d. with meals. 8. Folic acid 1 mg p.o. t.i.d. 9. Synthroid 100 mcg p.o. daily. 10. Multivitamin one daily orally. 11. Mirapex. The patient will take 0.125 mg orally at 9:00 a.m. and 3 o'clock p.m. and then take 0.25 mg orally at night. 12. Prednisone taper. The patient will be on 40 mg p.o. daily x 3 days and then 30 mg p.o. daily x 3 days and then 20 mg p.o. daily x 3 days and then 10 mg p.o. daily x 3 days and then stop. DISCHARGE CONDITION The patient is discharged today in stable and good condition. DISCHARGE DIET Diabetic 1800 calories daily. ACTIVITIES As tolerated. PATIENT INSTRUCTIONS 1. Patient instructed at bedside that if any issues should worsen and/or new ones should occur the patient will be seen immediately. 2. Orders given to Nursing to discontinue all lines, IVs and telemetry that the patient did not come in on before discharge. 3. Wound care: Not applicable. 4. Patient instructed that if she has any trouble accessing her medications or making her followup that she will let us know immediately. 5. Expected signs/symptoms: The patient's fatigue, shortness of breath, fevers , weakness should all stay resolved. 6. Pain management: The patient will let us know immediately if she has any pain. 7. Notify physician instructions: The patient will return to care immediately if any, fatigue, shortness of air, fevers, weakness, chest pain, lightheadedness should occur. 8. Contact information for the patient during business hours and after business hours was given. 9. [place] appointment: This is not applicable as the patient does not use tobacco. 10. For pending labs and results the patient will follow with primary care. 11. Followup appointments: The patient will follow up with Dr. Ashby in one week with a CBC and CMP the day before and sent to him. 12. The patient will follow up with Dr. Dee Dee Cheng, Rheumatology, in one week. Please note the patient instructions were given verbally to the patient by Dr. Ashby. Orders will be called from the clinic for the patient to set up for a chest x- ray within the next week to follow on the pleural effusion. The patient will also be given orders from the clinic to check blood sugars before breakfast and before supper. She will send a log of those every three to four days. This will only be needed while she is on the steroids. PERTINENT LABORATORY REPORTS The patient's white count was normal while here except for the day of discharge where it was 11.6 and this was due to steroids. Hemoglobin was 10.5 on admission and dropped down to 10.6 after rehydration. It trended up to 9.7 by discharge. Hematocrit was generally in the mid 30s while here. Platelets were normal. The patient did have a predominance of neutrophils develop as the patient was on steroids. The rest of the CBCs were generally unremarkable. INR on admission was 1.28 and PTT was 27.2. Sodiums, potassiums, chlorides, acid base status were unremarkable throughout. Creatinine was 1.5 on admission and down to 1.4 by discharge. This is generally at the patient's usual baseline. The patient's blood sugars were generally in the mid 100s while here. Calciums were unremarkable while here as was the patient's magnesium and phosphorus and liver function studies. CRP on admission was 76 - it was a high-sensitivity CRP. Creatinine kinase on admission was normal as was the patient's troponin. B-type natriuretic peptide on admission was normal. Serum protein studies were generally unremarkable and the patient's complete metabolic panel. TSH was normal while here. Urinalysis on admission was unremarkable. Patient's respiratory PCR was unremarkable on admission. The patient's Legionella and Mycoplasma studies as well as the urine strep pneumonia are still pending. IgM and IgG levels were normal while here. The pleural fluid studies demonstrated an unremarkable fluid red blood cell count as well as pH and cell count differential. Light's criteria did show evidence of an exudate while here. The patient was having some diarrhea coming in but her stool PCR was unable to be obtained as she was not having diarrhea and she did have any stools while here. PENDING LABS AT THIS TIME Pleural fluid cultures are negative to date but still officially pending. Pleural cytology is pending. Echocardiogram is pending. Sputum culture and Gram stain unable to be obtained secondary to the patient not producing sputum. Mycoplasma serologies were pending as is urine Strep pneumonia and Legionella as already noted. Echogram still pending. MICROBIOLOGY WHILE HERE Gram stain of the thoracic fluid which was obtained showed a negative Gram stain as well as no growth after two days at this time. Blood cultures x 2 were negative to date. PERTINENT IMAGING/OTHER STUDIES The patient's EKG on admission was essentially normal. Bilateral lower extremity Doppler ultrasound was negative for any blood clots. Ultrasound-guided thoracentesis was performed which was successful and 5-10 mL of fluid was removed and sent to the lab. Fluid color was yellow and slightly cloudy but no other gross abnormalities were noted. Of note, a CT scan of the chest without contrast was done a couple of days prior here at [facility] for this patient and it showed the pleural effusion but no other intraparenchymal issues or acute problems. The patient's vital signs were generally unremarkable and normal throughout the stay. HISTORY OF PRESENT ILLNESS/HOSPITAL COURSE This is a pleasant 61-year-old female known to our clinic. She has a known history of chronic kidney disease, hypertension and is a former smoker. She was in her usual state of health until about one week previous to admission. At that time she started in with fevers, chills, cough and other generally nonspecific symptoms as well as some shortness of breath which was mostly on exertion. She was [facility] by one of our nurse [facility] and put on azithromycin and albuterol. A subsequent chest x-ray showed a left lower lobe pneumonia and small pleural effusion. When the patient was seen in followup for this chest x-ray she noted she was actually feeling quite a bit better. A CT of the chest was obtained which showed a minimal amount of fluid but did appear to be improving. Given this, she was put back on Levaquin as an outpatient and followed clinically in a couple of days. By that period of time she had stated she was feeling weaker and was having some low-grade fevers again as well as a little more shortness of breath so it was opted to admit the patient. She was admitted to [facility] and put on IV antibiotics consisting of Levaquin and clindamycin. She was put on IV Solu-Medrol and this was approved per a conversation with her software intern. She was also put on Tessalon Perles and DuoNebs. Dr. Vilchis was consulted and felt it more appropriate the thoracentesis to be done ultrasound-guided with Interventional Radiology and thus this was completed. All of this seemed to help her great deal and by discharge she was feeling back to her baseline and ready to go home. Her energy was good and she was not short of breath. She was not having any fevers, chills or body aches. Please see above for the extensive imaging and laboratory evaluation done while here. It was also considered a possibility that her medications for her Sjgren's were contributing so these have been held after approval with by Dr. Cheng of Rheumatology. She will follow up in this regard in one week. The pleural effusion was tapped and the results are as listed above. Cytology is still pending. Echocardiogram was obtained and is still pending. Given the sterile nature of the patient's pleural fluid and a clinical absence of signs and symptoms consistent with an infection the patient's Levaquin and clindamycin were discontinued. She was maintained on a steroid taper. Other supportive meds for her issues were maintained. A workup for pulmonary embolism was a consideration. However, given the patient's traumatic turn around and the fact she is now symptom-free, this is not indicated at this time. She also has had completely normal oxygenation and vitals throughout. Please see above for discharge medicines, instructions and followup. The patient was complaining of some lower extremity swelling a few days previous to admission. A subsequent lower extremity Doppler was unremarkable as listed above. This had resolved and was not an issue throughout her stay here. The patient did mention some diarrhea coming in. It was normal-appearing and only for the day previous to admission. Stool studies, as noted above, were ordered but were not able to be obtained as the diarrhea resolved. For the patient's chronic kidney disease, this was stable while here. In regards to the patient's Sjgren's symptoms, there was no evidence of active disease while here otherwise. Please see above for followup. In regard to the patient's chronic iron deficiency and acute dilutional anemia, she was restarted back on the iron and vitamin C. She will also continue the folic acid. This will be followed as noted above. There was no clinical evidence of blood loss or abnormal bleeding while here. In regard to the patient's elevated fasting blood sugar, much of this is likely from the steroids. Please see above for instructions that will be given to the patient from the clinic. Please also look to the above for followup chest x- ray. The patient has a known history of hypothyroidism. TSH was normal and she was continued on her home dose of Synthroid. This was stable while here. In regard to the patient's restless leg syndrome, she was maintained on her home Mirapex and this was stable while here. In regard to the patient's leukocytosis, this is likely from the steroids. Given the patient's clinical improvement it is extraordinarily unlikely this is secondary to infection. There was no bandemia. This will be followed as an outpatient as listed above. All other chronic medical conditions stable and no other changes to plan of care at this time. For DVT prophylaxis the patient was put on SCDs while here. She did have a GFR in the 30s which did mean she got the subcutaneous Lovenox at 40 mg subcutaneously daily started 24 hours after the tap and she has done well with this so far. She is also more than 24 hours out from the thoracentesis. For GI prophylaxis the patient was continued on a p.o. diet. The patient was a FULL CODE while here. DISPOSITION Discharged to home today in stable and good condition. MAGGIE
[2017-03-31] MEDS ORDERED: METHOTREXATE 2.5MG TABLET PO SCH (13:00)
== END 2017-03-29 18:55 | disposition home or self-care (01) | DRG 194 ==
LOC: MED 10:14
PROVIDERS: ADMIT Internal Medicine; ATTEND Internal Medicine